=== PATIENT | female | born 1985 | race Caucasian/White ===

== ENCOUNTER 2018-10-12 15:48 | Emergency (ER) | payer MEDICAID ==
[~2018-10-12] VITALS: Ht 162.6 cm; Wt 80.0 kg
[2018-10-12] MEDS ORDERED: ACETAMINOPHEN 325MG TABLET PO STA (21:03)
[2018-10-12] MEDS ORDERED: SODIUM CHLORIDE 0.9% 1000ML BAG (SEPSIS BOLUS) IV ONE (21:15)
[2018-10-12 21:32] LABS: CLARITY URINE CLOUDY (CLEAR); COLOR URINE YELLOW (YELLOW); KETONES URINE 1+ (NEGATIVE); LEUKOCYTE ESTERASE URINE 3+ (NEGATIVE); NITRITE URINE NEGATIVE (NEGATIVE); OCCULT BLOOD URINE 2+ (NEGATIVE); PROTEIN URINE NEGATIVE (NEGATIVE); SPECIFIC GRAVITY URINE 1.009 (1.005-1.030)
[2018-10-12 21:57] LABS: BASOPHILS % 0.2 % (0.0-2.0); EOSINOPHILS % 0.1 % (0.0-5.0); HEMATOCRIT. 39.3 % (36.0-48.0); HEMOGLOBIN. 13.3 g/dL (12.0-16.0); LYMPHOCYTES % 8.5 % (20.0-50.0); MEAN CORPUSCULAR HEMOGLOBIN 30.2 pg (28.0-32.0); MEAN CORPUSCULAR VOLUME 89.2 fL (81.0-99.0); MEAN PLATELET VOLUME 8.9 fl (7.4-10.4); MONOCYTES % 7.3 % (2.0-8.0); NEUTROPHILS % 83.9 % (40.0-76.0); PLATELET 228 x1000/uL (130-400); RED CELL DISTRIBUTION WIDTH 13.1 % (11.6-14.6)
[2018-10-12 22:01] LABS: CHLORIDE 103 mEq/L (98-107)
[2018-10-12 22:03] LABS: PROTHROMBIN TIME 10.7 sec (9.6-11.0)
[2018-10-13] MEDS ORDERED: CEFTRIAXONE 1 G PREMIX 50 ML IV SCH
[2018-10-13 01:18] VITALS: BP 95/54
== END 2018-10-13 01:24 | disposition home or self-care (01) ==
LOC: ER 15:48
DX: N12 Tubulo-interstitial nephritis, not specified as acute or chronic (principal); M79.10 Myalgia, unspecified site; R30.0 Dysuria
CPT/HCPCS: 36415; 71045; 80053; 81003; 81025; 85025; 85610; 87077; 87086; 87186; 87804; 96365; 99284; J0696; J7030; J7040; Z7610